=== PATIENT | female | born 1950 | race Hispanic/Latino ===

== ENCOUNTER 2018-01-12 10:42 | Inpatient (IN) | payer MEDICARE ==
[2018-01-12 11:05] VITALS: BMI 23.2
[2018-01-12] MEDS ORDERED: Albuterol-Ipratrop 3 mg / 0.5 (3 ml) UD INH STA ×2 (11:35→13:17)
[2018-01-12 11:54] LABS: BASO # 0.1 K/uL (0.0-0.2); BASO % 1.1 % (0.0-2.0); EOS # 0.1 K/uL (0.0-0.7); EOS % 0.5 % (0.0-4.0); HEMOGLOBIN 11.9 g/dL (11.0-16.0); LYMPH # 0.9 K/uL (1.0-4.3); LYMPH % 9.9 % (20.0-40.0); MEAN CELL VOLUME 87.6 fL (81.0-99.0); MEAN CORPUSCULAR HEMOGLOBIN 29.9 pg (27.0-31.0); MEAN CORPUSCULAR HGB CONC 34.1 g/dL (33.0-37.0); MEAN PLATELET VOLUME 7.8 fL (7.2-11.7); MONO # 0.7 K/uL (0.0-0.8); MONO % 6.9 % (0.0-10.0); NEUT # 7.8 K/uL (1.8-7.0); NEUT % 81.6 % (50.0-75.0); PLATELET COUNT 384 K/uL (130-400); RED CELL DISTRIBUTION WIDTH 17.4 % (11.5-14.5); WHITE BLOOD COUNT 9.5 K/uL (4.8-10.8)
[2018-01-12 12:07] LABS: ALB/GLOB RATIO 1.3 (1.0-2.1); ALBUMIN 3.7 g/dL (3.5-5.0); ALT/SGPT 23 U/L (9-52); AST/SGOT 14 U/L (14-36); BLOOD UREA NITROGEN 9 mg/dL (7-17); CALCIUM 9.6 mg/dl (8.6-10.4); GFR AFRICAN-AMERICAN > 60; GFR NON-AFRICAN AMERICAN > 60
[2018-01-12 12:18] LABS: B-TYPE NATRIURETIC PEPTIDE 746 pg/mL (0-900)
--- NOTE | 2018-01-12 12:21 | RAD ---
HISTORY: COMPARISON: No prior. TECHNIQUE: 01/12/2018 Chest PA and lateral FINDINGS: LINES AND TUBES: None. LUNG AND PLEURA: The lungs are well inflated and clear. No pleural effusion or pneumothorax. HEART AND MEDIASTINUM: The heart is not enlarged. Status post CABG. The hilar and mediastinal contours are within normal limits. SKELETAL STRUCTURES: The bony structures are within normal limits for the patient's age. VISUALIZED UPPER ABDOMEN: Normal. OTHER FINDINGS: None. IMPRESSION: No active pulmonary disease.
[2018-01-12 12:26] LABS: BANDS 1 % (0-2); LYMPHOCYTE 10 % (20-40); MONOCYTE 3 % (0-10); NEUTROPHIL 86 % (50-75); PLATELET ESTIMATE NORMAL (NORMAL); TOTAL CELLS COUNTED 100
[2018-01-12 12:27] LABS: ANISOCYTOSIS SLIGHT
[2018-01-12] MEDS ORDERED: Albuterol-Ipratrop 3 mg / 0.5 (3 ml) UD ONE ×2 (12:45→13:42)
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
[2018-01-12] MEDS ORDERED: MethylPREDNISolone 40 mg Vial IVP STA (13:29)
[2018-01-12] MEDS ORDERED: Potassium Chloride 20 mEq ER Tab PO STA (15:02)
[2018-01-12] MEDS ORDERED: Potassium Chloride 20 mEq/15 ml LIQ UD ONE (15:12)
[2018-01-12] MEDS ORDERED: Dextrose 50% SYRINGE Inj (50 ml) IV PRN (15:44)
[2018-01-12] MEDS ORDERED: Glucagon Recombinant 1 mg Inj IM PRN (15:44)
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
[2018-01-12] MEDS ORDERED: MethylPREDNISolone 40 mg Vial IVP SCH (18:00)
[2018-01-12 18:42] LABS: PROTHROMBIN TIME 11.2 SECONDS (9.7-12.2)
[2018-01-12 19:01] LABS: CK-MB 0.53 ng/mL (0.0-3.38)
[2018-01-12 20:35] LABS: MYCOPLASMA PNEUMONIAE IGM NEGATIVE (NEGATIVE)
[2018-01-12] MEDS: (Novolin R) Insulin Human Regular 100 units/ml vial SC SCH (22:51)
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
[2018-01-13] MEDS: MethylPREDNISolone 40 mg Vial IVP SCH ×4 (00:10→18:24)
[2018-01-13] MEDS: Albuterol-Ipratrop 3 mg / 0.5 (3 ml) UD INH SCH ×6 (00:41→20:10)
[2018-01-13 04:43] LABS: SQUAMOUS EPITHIAL < 1 /hpf (0-5); URINE BILIRUBIN NEGATIVE (NEGATIVE); URINE BLOOD NEGATIVE (NEGATIVE); URINE CLARITY Clear (Clear); URINE COLOR Straw (YELLOW); URINE GLUCOSE (UA) 3+ mg/dL (Normal); URINE LEUKOCYTE ESTERASE NEG Leu/uL (Negative); URINE PROTEIN NEGATIVE (NEGATIVE); URINE UROBILINOGEN NORMAL mg/dL (0.2-1.0)
[2018-01-13 06:37] LABS: BASO % 0.1 % (0.0-2.0); HEMOGLOBIN 11.7 g/dL (11.0-16.0); LYMPH # 0.4 K/uL (1.0-4.3); LYMPH % 6.4 % (20.0-40.0); MEAN CELL VOLUME 86.9 fL (81.0-99.0); MEAN CORPUSCULAR HEMOGLOBIN 29.4 pg (27.0-31.0); MEAN CORPUSCULAR HGB CONC 33.8 g/dL (33.0-37.0); MEAN PLATELET VOLUME 8.4 fL (7.2-11.7); MONO # 0.1 K/uL (0.0-0.8); NEUT # 5.8 K/uL (1.8-7.0); NEUT % 92.5 % (50.0-75.0); NRBC % 0.1 % (0.0-2.0); PLATELET COUNT 350 K/uL (130-400); RED CELL DISTRIBUTION WIDTH 17.2 % (11.5-14.5); WHITE BLOOD COUNT 6.2 K/uL (4.8-10.8)
[2018-01-13 07:21] LABS: CK-MB 0.89 ng/mL (0.0-3.38)
[2018-01-13 07:27] LABS: LDL CHOLESTEROL 89 mg/dL (0-129)
[2018-01-13] MEDS: Fluticasone-Salmeterol 250-50mcg Diskus IH SCH ×2 (07:30→20:13)
[2018-01-13 07:36] LABS: ALB/GLOB RATIO 1.4 (1.0-2.1); ALBUMIN 3.6 g/dL (3.5-5.0); ALT/SGPT 23 U/L (9-52); AST/SGOT 15 U/L (14-36); BLOOD UREA NITROGEN 11 mg/dL (7-17); CALCIUM 8.7 mg/dl (8.6-10.4); GFR AFRICAN-AMERICAN > 60; GFR NON-AFRICAN AMERICAN > 60; HDL CHOLESTEROL 42 mg/dL (30-70)
[2018-01-13] MEDS: (Novolin R) Insulin Human Regular 100 units/ml vial SC SCH ×5 (08:22→21:05)
[2018-01-13 08:30] LABS: TOTAL CELLS COUNTED 100
[2018-01-13 08:31] LABS: ANISOCYTOSIS SLIGHT; LYMPHOCYTE 2 % (20-40); NEUTROPHIL 98 % (50-75); PLATELET ESTIMATE NORMAL (NORMAL)
[2018-01-13 09:06] LABS: N MENINGITIS ACY/W135 NOT REQUIRED (NEGATIVE); N MENINGITIS B/ECOLI K1 NOT REQUIRED (NEGATIVE); STREP PNEUMONIAE NEGATIVE (NEGATIVE); STREPTOCOCCUS B NOT REQUIRED (NEGATIVE)
[2018-01-13] MEDS: Enoxaparin 40 mg Syringe SC SCH (09:14)
--- NOTE | 2018-01-13 11:42 | CP.PCM.PN ---
Subjective - Date & Time of Evaluation Date of Evaluation: 01/13/18 Time of Evaluation: 11:40 - Subjective Subjective: PGY2 Progress Note Dr. Freeman Patient seen and examined at bedside. Per nursing, no acute events occurred overnight. Patient reports right hip pain during today's visit. Patient denies any chest pain, shortness of breath, fevers, chills, nausea , vomiting, or any other complaints. Objective - Vital Signs/Intake and Output Vital Signs (last 24 hours): Temp Pulse Resp BP Pulse Ox 98.3 F 87 20 135/70 94 L 01/13/18 08:32 01/13/18 08:32 01/13/18 08:32 01/13/18 09:13 01/13/18 08:32 Intake and Output: 01/13/18 01/13/18 06:59 18:59 Intake Total 480 Balance 480 - Medications Medications: Current Medications Albuterol/Ipratropium (Duoneb 3 Mg/0.5 Mg (3 Ml) Ud) 3 ml INH RQ4 [facility] Last Admin: 01/13/18 07:00 Dose: 3 ml Azithromycin (Zithromax) 500 mg PO Q24H [facility] PRN Reason: Protocol Stop: 01/17/18 10:01 Last Admin: 01/13/18 09:16 Dose: 500 mg Dextrose (Dextrose 50% Inj) 0 ml IV STAT PRN; Protocol PRN Reason: Hypoglycemia Protocol Dextrose (Glutose 15) 0 gm PO ONCE PRN; Protocol PRN Reason: Hypoglycemia Protocol Enalapril Maleate (Vasotec) 10 mg PO DAILY [facility] Last Admin: 01/13/18 09:10 Dose: 10 mg Enoxaparin Sodium (Lovenox) 40 mg SC DAILY [facility] Last Admin: 01/13/18 09:14 Dose: 40 mg Glucagon (Glucagen Diagnostic Kit) 0 mg IM STAT PRN; Protocol PRN Reason: Hypoglycemia Protocol Hydrochlorothiazide (Hydrodiuril) 25 mg PO DAILY [facility] Dextrose (Dextrose 5% In Water 1000 Ml) 1,000 mls @ 0 mls/hr IV .Q0M PRN; Protocol; Per Protocol PRN Reason: Hypoglycemia Protocol Ceftriaxone Sodium 1 gm/ (Sodium Chloride) 100 mls @ 100 mls/hr IVPB DAILY [facility] PRN Reason: Protocol Insulin Human Regular (Novolin R) 0 unit SC ACHS [facility] PRN Reason: Protocol Last Admin: 01/13/18 08:22 Dose: 6 units Methylprednisolone (Solu-Medrol) 60 mg IVP Q6 [facility] Last Admin: 01/13/18 05:23 Dose: 60 mg Metoprolol Tartrate (Lopressor) 25 mg PO Q12 [facility] Last Admin: 01/13/18 09:13 Dose: 25 mg Rosuvastatin Calcium (Crestor) 10 mg PO HS [facility] Last Admin: 01/12/18 22:50 Dose: 10 mg Fluticasone/Salmeterol (Advair Diskus 250/50) 1 puff IH RQ12 [facility] Tiotropium [place] (Spiriva) 18 mcg INH RQ24 [facility] - Labs Labs: 01/13/18 06:29 01/13/18 06:29 PT 11.2 SECONDS (9.7-12.2) 01/12/18 18:29 INR 1.0 01/12/18 18:29 APTT 28 SECONDS (21-34) 01/12/18 18:29 - Head Exam Head Exam: ATRAUMATIC, NORMAL INSPECTION, NORMOCEPHALIC - Eye Exam Eye Exam: EOMI, Normal appearance Pupil Exam: NORMAL ACCOMODATION - ENT Exam ENT Exam: Mucous Membranes Moist, Normal Oropharynx - Respiratory Exam Respiratory Exam: Clear to Ausculation Bilateral, NORMAL BREATHING PATTERN - Cardiovascular Exam Cardiovascular Exam: REGULAR RHYTHM, +S1, +S2 - GI/Abdominal Exam GI & Abdominal Exam: Soft, Normal Bowel Sounds - Extremities Exam Extremities Exam: Full ROM. absent: Pedal Edema - Back Exam Back Exam: NORMAL INSPECTION. absent: CVA tenderness (R), paraspinal tenderness - Neurological Exam Neurological Exam: Alert, Awake, CN II-XII Intact - Psychiatric Exam Psychiatric exam: Normal Affect, Normal Mood - Skin Skin Exam: Dry, Intact Assessment and Plan - Assessment and Plan (Free Text) Plan: 67 YO F w/ PMH of CAD, PVD, HTN, HLD, Type 2 DM, carotid stenosis s/p endartectomy, COPD, bipolar admitted for COPD exacerbation, hypokalemia, r/o pneumonia and chest pain. Pt is a poor historian. COPD exacerbation -Chest X ray - negative for active disease -mycoplasma, step pneumo: Negative -Legionella cancelled. Will re-order. -secondary to noncompliance with medications -with diffuse wheezing b/l on inhalation and exhalation -Duonebs RQ4 [facility] -Spiriva 18mcg INH Daily -Advair 250/50 RQ12 -Solumedrol IVP 60mg Q6 hours - SAt 94% O2, 2L NC prn to keep O2 sat above 92% -Ceftriaxone 1 gram IVPB daily (started 01/12) -Azithromycin 500mg PO daily x 5 days (started 01/12) Chest Pain/CAD- s/p CABG -likely scrondary to COPD exacerbation but will r/o PR -Troponin x 3 : negative -EKG : Non specific EKG changes noted. No acute ischemic event noted -Cardiology consulted, Dr. Lam, help appreciated - [place] [facility] [place] will need to check medical record to see if recent echo was ordered -Pt started was on coumadin therapy but has not been taking? -PT: 11.2, INR:1.O Hypokalemia -3.3 - Replaced iv -Mg level 1.7 Diarrhea -C.diff negative -Will f/u with remaining stool studies HTN -controlled, low sodium diet -Enalapril 10mg PO daily -HCTHZ 25mg PO daily -Metoprolol 25mg BID DM- Type II uncontrolled -HbA1c 9 (11/05/17) -Sliding scale Insulin; medium dose -Accuchecks ACHS -hypoglycemia protocol -will hold home metformin while in the hospital Sunburn, dorsum of feet Wound care consulted, help appreciated Hx of Bipolar disorder, schizophrenia, anxiety -Tangential and scattered on exam -Psych consulted, [place], help appreciated Prophylaxis -Lovenox 40mg sc daily, SCD not indicated due to leg edema - GI not indicated All orders and management per Dr. Freeman.
[2018-01-13] MEDS: Tiotropium 18 mcg Cap For Inhalation INH SCH (13:46)
--- NOTE | 2018-01-13 19:37 | CP.PCM.PN ---
Subjective - Date & Time of Evaluation Date of Evaluation: 01/13/18 Time of Evaluation: 14:20 - Subjective Subjective: Patient seen and examined at bedside. Per nursing, no acute events occurred overnight. Patient reports right hip pain during today's visit. Patient denies any chest pain, shortness of breath, fevers, chills, nausea , vomiting, or any other complaints. Physical Examination - Head Exam Head Exam: ATRAUMATIC, NORMAL INSPECTION, NORMOCEPHALIC - Eye Exam Eye Exam: EOMI, Normal appearance Pupil Exam: NORMAL ACCOMODATION - ENT Exam ENT Exam: Mucous Membranes Moist, Normal Oropharynx - Respiratory Exam Respiratory Exam: Clear to Ausculation Bilateral, NORMAL BREATHING PATTERN - Cardiovascular Exam Cardiovascular Exam: REGULAR RHYTHM, +S1, +S2 - GI/Abdominal Exam GI & Abdominal Exam: Soft, Normal Bowel Sounds - Extremities Exam Extremities Exam: Full ROM. absent: Pedal Edema - Back Exam Back Exam: NORMAL INSPECTION. absent: CVA tenderness (R), paraspinal tenderness - Neurological Exam Neurological Exam: Alert, Awake, CN II-XII Intact - Psychiatric Exam Psychiatric exam: Normal Affect, Normal Mood - Skin Skin Exam: Dry, Intact Objective - Vital Signs/Intake and Output Vital Signs (last 24 hours): Temp Pulse Resp BP Pulse Ox 97.9 F 67 18 142/60 95 01/13/18 15:05 01/13/18 16:00 01/13/18 15:05 01/13/18 15:05 01/13/18 15:05 Intake and Output: 01/13/18 01/14/18 18:59 06:59 Intake Total 480 Balance 480 - Medications Medications: Current Medications Albuterol/Ipratropium (Duoneb 3 Mg/0.5 Mg (3 Ml) Ud) 3 ml INH RQ4 [facility] Last Admin: 01/13/18 13:45 Dose: 3 ml Azithromycin (Zithromax) 500 mg PO Q24H [facility] PRN Reason: Protocol Stop: 01/17/18 10:01 Last Admin: 01/13/18 09:16 Dose: 500 mg Dextrose (Dextrose 50% Inj) 0 ml IV STAT PRN; Protocol PRN Reason: Hypoglycemia Protocol Dextrose (Glutose 15) 0 gm PO ONCE PRN; Protocol PRN Reason: Hypoglycemia Protocol Enalapril Maleate (Vasotec) 10 mg PO DAILY [facility] Last Admin: 01/13/18 09:10 Dose: 10 mg Enoxaparin Sodium (Lovenox) 40 mg SC DAILY [facility] Last Admin: 01/13/18 09:14 Dose: 40 mg Glucagon (Glucagen Diagnostic Kit) 0 mg IM STAT PRN; Protocol PRN Reason: Hypoglycemia Protocol Hydrochlorothiazide (Hydrodiuril) 25 mg PO DAILY [facility] Last Admin: 01/13/18 13:14 Dose: 25 mg Dextrose (Dextrose 5% In Water 1000 Ml) 1,000 mls @ 0 mls/hr IV .Q0M PRN; Protocol; Per Protocol PRN Reason: Hypoglycemia Protocol Ceftriaxone Sodium 1 gm/ (Sodium Chloride) 100 mls @ 100 mls/hr IVPB DAILY [facility] PRN Reason: Protocol Last Admin: 01/13/18 10:00 Dose: 100 mls/hr Insulin Human Regular (Novolin R) 0 unit SC ACHS [facility] PRN Reason: Protocol Last Admin: 01/13/18 18:23 Dose: Not Given Methylprednisolone (Solu-Medrol) 60 mg IVP Q6 [facility] Last Admin: 01/13/18 18:24 Dose: 60 mg Metoprolol Tartrate (Lopressor) 25 mg PO Q12 [facility] Last Admin: 01/13/18 09:13 Dose: 25 mg Rosuvastatin Calcium (Crestor) 10 mg PO HS [facility] Last Admin: 01/12/18 22:50 Dose: 10 mg Fluticasone/Salmeterol (Advair Diskus 250/50) 1 puff IH RQ12 [facility] Last Admin: 01/13/18 07:30 Dose: 1 puff Tiotropium [place] (Spiriva) 18 mcg INH RQ24 [facility] Last Admin: 01/13/18 13:46 Dose: Not Given - Labs Labs: 01/13/18 06:29 01/13/18 06:29 PT 11.2 SECONDS (9.7-12.2) 01/12/18 18:29 INR 1.0 01/12/18 18:29 APTT 28 SECONDS (21-34) 01/12/18 18:29 Assessment and Plan - Assessment and Plan (Free Text) Assessment: 67 YO F w/ PMH of CAD, PVD, HTN, HLD, Type 2 DM, carotid stenosis s/p endartectomy, COPD, bipolar admitted for COPD exacerbation, hypokalemia, r/o pneumonia and chest pain. Pt is a poor historian. COPD exacerbation -Chest X ray - negative for active disease -mycoplasma, step pneumo: Negative -Legionella cancelled. Will re-order. -secondary to noncompliance with medications -with diffuse wheezing b/l on inhalation and exhalation -Duonebs RQ4 denice -Spiriva 18mcg INH Daily -Advair 250/50 RQ12 -Solumedrol IVP 60mg Q6 hours - SAt 94% O2, 2L NC prn to keep O2 sat above 92% -Ceftriaxone 1 gram IVPB daily (started 01/12) -Azithromycin 500mg PO daily x 5 days (started 01/12) Chest Pain/CAD- s/p CABG -likely scrondary to COPD exacerbation but will r/o [place] -Troponin x 3 : negative -EKG : Non specific EKG changes noted. No acute ischemic event noted ECHO: Normal EF Patient scheduled for stress test in am HTN -controlled, low sodium diet -Enalapril 10mg PO daily -HCTHZ 25mg PO daily -Metoprolol 25mg BID DM- Type II uncontrolled -HbA1c 9 (11/05/17) -Sliding scale Insulin; medium dose -Accuchecks ACHS -hypoglycemia protocol -will hold home metformin while in the hospital Sunburn, dorsum of feet Wound care consulted, help appreciated Hx of Bipolar disorder, schizophrenia, anxiety -Tangential and scattered on exam -Psych consulted, [place], help appreciated Prophylaxis -Lovenox 40mg sc daily, SCD not indicated due to leg edema - GI not indicated
[2018-01-13] MEDS ORDERED: Potassium Chloride 20 mEq ER Tab PO ONE (22:41)
[2018-01-14] MEDS: MethylPREDNISolone 40 mg Vial IVP SCH ×5 (00:04→23:49)
[2018-01-14] MEDS: Albuterol-Ipratrop 3 mg / 0.5 (3 ml) UD INH SCH ×6 (00:17→19:50)
[2018-01-14 02:30] VITALS: RESP 20
--- NOTE | 2018-01-14 07:17 | CP.PCM.PN ---
Subjective - Date & Time of Evaluation Date of Evaluation: 01/14/18 Time of Evaluation: 07:17 - Subjective Subjective: PGY2 Progress Note Dr. Freeman Patient seen and examined at bedside. Per nursing, no acute events occurred overnight. Patient reports right hip pain during today's visit. Patient denies any chest pain, shortness of breath, fevers, chills, nausea , vomiting, or any other complaints. Objective - Vital Signs/Intake and Output Vital Signs (last 24 hours): Temp Pulse Resp BP Pulse Ox 98.0 F 72 20 168/67 H 96 01/13/18 23:40 01/14/18 04:37 01/13/18 23:40 01/13/18 23:40 01/13/18 23:40 Intake and Output: 01/14/18 01/14/18 06:59 18:59 Intake Total 520 Output Total 1200 Balance -680 - Medications Medications: Current Medications Albuterol/Ipratropium (Duoneb 3 Mg/0.5 Mg (3 Ml) Ud) 3 ml INH RQ4 [facility] Last Admin: 01/14/18 04:20 Dose: Not Given Azithromycin (Zithromax) 500 mg PO Q24H [facility] PRN Reason: Protocol Stop: 01/17/18 10:01 Last Admin: 01/13/18 09:16 Dose: 500 mg Dextrose (Dextrose 50% Inj) 0 ml IV STAT PRN; Protocol PRN Reason: Hypoglycemia Protocol Dextrose (Glutose 15) 0 gm PO ONCE PRN; Protocol PRN Reason: Hypoglycemia Protocol Enalapril Maleate (Vasotec) 10 mg PO DAILY [facility] Last Admin: 01/13/18 09:10 Dose: 10 mg Enoxaparin Sodium (Lovenox) 40 mg SC DAILY [facility] Last Admin: 01/13/18 09:14 Dose: 40 mg Glucagon (Glucagen Diagnostic Kit) 0 mg IM STAT PRN; Protocol PRN Reason: Hypoglycemia Protocol Hydrochlorothiazide (Hydrodiuril) 25 mg PO DAILY [facility] Last Admin: 01/13/18 13:14 Dose: 25 mg Dextrose (Dextrose 5% In Water 1000 Ml) 1,000 mls @ 0 mls/hr IV .Q0M PRN; Protocol; Per Protocol PRN Reason: Hypoglycemia Protocol Ceftriaxone Sodium 1 gm/ (Sodium Chloride) 100 mls @ 100 mls/hr IVPB DAILY [facility] PRN Reason: Protocol Last Admin: 01/13/18 10:00 Dose: 100 mls/hr Insulin Human Regular (Novolin R) 0 unit SC ACHS [facility] PRN Reason: Protocol Last Admin: 01/13/18 21:05 Dose: Not Given Methylprednisolone (Solu-Medrol) 60 mg IVP Q6 [facility] Last Admin: 01/14/18 05:59 Dose: 60 mg Metoprolol Tartrate (Lopressor) 25 mg PO Q12 [facility] Last Admin: 01/13/18 21:31 Dose: 25 mg Potassium Chloride (K-Dur 20 Meq Er Tab) 20 meq PO DAILY [facility] Rosuvastatin Calcium (Crestor) 10 mg PO HS [facility] Last Admin: 01/13/18 21:31 Dose: 10 mg Fluticasone/Salmeterol (Advair Diskus 250/50) 1 puff IH RQ12 [facility] Last Admin: 01/13/18 20:13 Dose: Not Given Tiotropium [place] (Spiriva) 18 mcg INH RQ24 [facility] Last Admin: 01/13/18 13:46 Dose: Not Given - Labs Labs: 01/13/18 06:29 01/13/18 06:29 PT 11.2 SECONDS (9.7-12.2) 01/12/18 18:29 INR 1.0 01/12/18 18:29 APTT 28 SECONDS (21-34) 01/12/18 18:29 - Head Exam Head Exam: ATRAUMATIC, NORMAL INSPECTION - Eye Exam Eye Exam: EOMI, Normal appearance, PERRL Pupil Exam: NORMAL ACCOMODATION, PERRL. absent: Irregular, Unequal - ENT Exam ENT Exam: Mucous Membranes Moist, Normal Oropharynx - Respiratory Exam Respiratory Exam: Clear to Ausculation Bilateral, NORMAL BREATHING PATTERN. absent: Prolonged Expiratory Phase, Respiratory Distress - Cardiovascular Exam Cardiovascular Exam: REGULAR RHYTHM, +S1, +S2 - GI/Abdominal Exam GI & Abdominal Exam: Soft, Normal Bowel Sounds - Extremities Exam Extremities Exam: Full ROM, Normal Inspection. absent: Pedal Edema - Back Exam Back Exam: NORMAL INSPECTION. absent: CVA tenderness (R), paraspinal tenderness - Neurological Exam Neurological Exam: Alert, Awake, Oriented x3 - Psychiatric Exam Psychiatric exam: Normal Affect, Normal Mood - Skin Skin Exam: Dry, Intact Assessment and Plan - Assessment and Plan (Free Text) Plan: 67 YO F w/ PMH of CAD, PVD, HTN, HLD, Type 2 DM, carotid stenosis s/p endartectomy, COPD, bipolar admitted for COPD exacerbation, hypokalemia, r/o pneumonia and chest pain. Pt is a poor historian. COPD exacerbation -Chest X ray - negative for active disease -mycoplasma, step pneumo: Negative -secondary to noncompliance with medications -with diffuse wheezing b/l on inhalation and exhalation -Duonebs RQ4 [facility] -Spiriva 18mcg INH Daily -Advair 250/50 RQ12 -Solumedrol IVP 60mg Q6 hours - SAt 94% O2, 2L NC prn to keep O2 sat above 92% -Ceftriaxone 1 gram IVPB daily (started 01/12) -Azithromycin 500mg PO daily x 5 days (started 01/12) Chest Pain/CAD- s/p CABG -likely scrondary to COPD exacerbation but will r/o [place] -Troponin x 3 : negative -EKG : Non specific EKG changes noted. No acute ischemic event noted -Cardiology consulted, Dr. Lam, help appreciated - patient [place] [facility] [place] will need to check medical record to see if recent echo was ordered -Pt started was on coumadin therapy but has not been taking? -PT: 11.2, INR:1.O Hypokalemia - Replaced iv -Mg level 1.7 -Will monitor with serial CMP's Diarrhea -C.diff negative -stool leukocytes negative HTN -controlled, low sodium diet -Enalapril 10mg PO daily -HCTHZ 25mg PO daily -Metoprolol 25mg BID DM- Type II uncontrolled -HbA1c 9 (11/05/17) -Sliding scale Insulin; medium dose -Accuchecks ACHS -hypoglycemia protocol -will hold home metformin while in the hospital Sunburn, dorsum of feet Wound care consulted, help appreciated Hx of Bipolar disorder, schizophrenia, anxiety -AOX3 on exam today. -Psych consulted, [place], help appreciated Prophylaxis -Lovenox 40mg sc daily, SCD not indicated due to leg edema - GI not indicated All orders and management per Dr. Freeman.
--- NOTE | 2018-01-14 08:17 | HP ---
Copied To: Estephania Freeman MD Attending MD: Estephania Freeman MD HISTORY OF PRESENT ILLNESS: A 67-year-old female who comes to the hospital with chief complaint of shortness of breath, wheezing, cough, fatigue, tiredness. The patient has a history of coronary artery disease, carotid stenosis, COPD. The patient is a smoker. The patient lives in nursing home. PHYSICAL EXAMINATION: GENERAL: The patient is awake, alert, oriented, short of breath.. VITAL SIGNS: Temperature 98, pulse 90. HEENT: Within normal limits. NECK: Supple. CHEST: Symmetrical. air entry. Bilateral wheezes. HEART: Regular. ABDOMEN: Soft. EXTREMITIES: No edema. IMPRESSION: The patient has chronic obstructive pulmonary disease, bronchitis, and congestive heart failure. PLAN: The patient to be in bed rest, supportive care, bronchodilator. Estephania Freeman MD
[2018-01-14] MEDS: Fluticasone-Salmeterol 250-50mcg Diskus IH SCH ×2 (08:18→19:49)
[2018-01-14] MEDS: Tiotropium 18 mcg Cap For Inhalation INH SCH (08:19)
[2018-01-14] MEDS: (Novolin R) Insulin Human Regular 100 units/ml vial SC SCH ×4 (08:35→21:42)
--- NOTE | 2018-01-14 09:59 | CP.PCM.PN ---
<Nikki Olsen - Last Filed: 01/14/18 16:50> Subjective - Date & Time of Evaluation Date of Evaluation: 01/14/18 Time of Evaluation: 09:58 - Subjective Subjective: Cardiology Progress Note - Dr Lam Patient seen and examined at bedside. Per nursing no acute events overnight. Patient for stress test this morning. Was unable to complete the second part of stress test, patient kept moving. Denies dyspnea, shortness of breath. Complaining of frequently moving her bowels. States that her bowel bowel movements are well formed and normal in color. Objective - Vital Signs/Intake and Output Vital Signs (last 24 hours): Temp Pulse Resp BP Pulse Ox 98.5 F 63 20 162/65 H 94 L 01/14/18 07:25 01/14/18 08:00 01/14/18 07:25 01/14/18 09:49 01/14/18 07:25 Intake and Output: 01/14/18 01/14/18 06:59 18:59 Intake Total 520 Output Total 1200 Balance -680 - Medications Medications: Current Medications Albuterol/Ipratropium (Duoneb 3 Mg/0.5 Mg (3 Ml) Ud) 3 ml INH RQ4 [facility] Last Admin: 01/14/18 08:18 Dose: Not Given Azithromycin (Zithromax) 500 mg PO Q24H [facility] PRN Reason: Protocol Stop: 01/17/18 10:01 Last Admin: 01/13/18 09:16 Dose: 500 mg Dextrose (Dextrose 50% Inj) 0 ml IV STAT PRN; Protocol PRN Reason: Hypoglycemia Protocol Dextrose (Glutose 15) 0 gm PO ONCE PRN; Protocol PRN Reason: Hypoglycemia Protocol Enalapril Maleate (Vasotec) 10 mg PO DAILY [facility] Last Admin: 01/14/18 09:49 Dose: 10 mg Enoxaparin Sodium (Lovenox) 40 mg SC DAILY [facility] Last Admin: 01/13/18 09:14 Dose: 40 mg Glucagon (Glucagen Diagnostic Kit) 0 mg IM STAT PRN; Protocol PRN Reason: Hypoglycemia Protocol Hydrochlorothiazide (Hydrodiuril) 25 mg PO DAILY [facility] Last Admin: 01/14/18 09:50 Dose: 25 mg Dextrose (Dextrose 5% In Water 1000 Ml) 1,000 mls @ 0 mls/hr IV .Q0M PRN; Protocol; Per Protocol PRN Reason: Hypoglycemia Protocol Ceftriaxone Sodium 1 gm/ (Sodium Chloride) 100 mls @ 100 mls/hr IVPB DAILY [facility] PRN Reason: Protocol Last Admin: 01/13/18 10:00 Dose: 100 mls/hr Insulin Human Regular (Novolin R) 0 unit SC ACHS [facility] PRN Reason: Protocol Last Admin: 01/14/18 08:35 Dose: 4 units Methylprednisolone (Solu-Medrol) 60 mg IVP Q6 [facility] Last Admin: 01/14/18 05:59 Dose: 60 mg Metoprolol Tartrate (Lopressor) 25 mg PO Q12 [facility] Last Admin: 01/14/18 09:49 Dose: 25 mg Potassium Chloride (K-Dur 20 Meq Er Tab) 20 meq PO DAILY [facility] Rosuvastatin Calcium (Crestor) 10 mg PO HS [facility] Last Admin: 01/13/18 21:31 Dose: 10 mg Fluticasone/Salmeterol (Advair Diskus 250/50) 1 puff IH RQ12 [facility] Last Admin: 01/14/18 08:18 Dose: Not Given Tiotropium [place] (Spiriva) 18 mcg INH RQ24 [facility] Last Admin: 01/14/18 08:19 Dose: Not Given - Labs Labs: 01/13/18 06:29 01/13/18 06:29 PT 11.2 SECONDS (9.7-12.2) 01/12/18 18:29 INR 1.0 01/12/18 18:29 APTT 28 SECONDS (21-34) 01/12/18 18:29 - Additional Findings Additional findings: - Head Exam Head Exam: ATRAUMATIC, NORMAL INSPECTION - Eye Exam Eye Exam: EOMI, Normal appearance, PERRL Pupil Exam: NORMAL ACCOMODATION, PERRL. absent: Irregular, Unequal - ENT Exam ENT Exam: Mucous Membranes Moist, Normal Oropharynx - Respiratory Exam Respiratory Exam: Clear to Ausculation Bilateral, NORMAL BREATHING PATTERN. absent: Prolonged Expiratory Phase, Respiratory Distress - Cardiovascular Exam Cardiovascular Exam: REGULAR RHYTHM, +S1, +S2 - GI/Abdominal Exam GI & Abdominal Exam: Soft, Normal Bowel Sounds - Extremities Exam Extremities Exam: Full ROM, Normal Inspection. absent: Pedal Edema - Back Exam Back Exam: NORMAL INSPECTION. absent: CVA tenderness (R), paraspinal tenderness - Neurological Exam Neurological Exam: Alert, Awake, Oriented x3 - Psychiatric Exam Psychiatric exam: Normal Affect, Normal Mood - Skin Skin Exam: Dry, Intact Assessment and Plan - Assessment and Plan (Free Text) Assessment: 67 YO F w/ PMH of CAD, PVD, HTN, HLD, Type 2 DM, carotid stenosis s/p endartectomy, COPD, bipolar admitted for COPD exacerbation, hypokalemia, r/o pneumonia and chest pain. Pt is a poor historian. Chest Pain/CAD- s/p CABG -likely scrondary to COPD exacerbation but will r/o NM -Troponin x 3 : negative -EKG : Non specific EKG changes noted. No acute ischemic event noted -ECHO: Normal EF -Continue medical management HTN -Controlled, low sodium diet -Patient complaining of dry mouth, will d/c HCTZ and increase vasotec -Enalapril 20mg PO daily -Metoprolol 25mg BID COPD exacerbation -Chest X ray - negative for active disease -mycoplasma, step pneumo: Negative -Legionella cancelled. Will re-order. -secondary to noncompliance with medications -Duonebs RQ4 [facility], Spiriva 18mcg INH Daily, Advair 250/50 RQ12 -Solumedrol IVP 60mg Q6 hours -SAt 94% O2, 2L NC prn to keep O2 sat above 92% -Ceftriaxone 1 gram IVPB daily (started 01/12) -Azithromycin 500mg PO daily x 5 days (started 01/12) DM- Type II uncontrolled -HbA1c 9 (11/05/17) -Sliding scale Insulin; medium dose -Accuchecks ACHS -hypoglycemia protocol -will hold home metformin while in the hospital Sunburn, dorsum of feet Wound care consulted, help appreciated Hx of Bipolar disorder, schizophrenia, anxiety -Tangential and scattered on exam -Psych consulted, [place], help appreciated Plan discussed with Dr Genaro Olsen DO PGY-2 <Chaitanya Lam - Last Filed: 01/15/18 06:33> Objective - Vital Signs/Intake and Output Vital Signs (last 24 hours): Temp Pulse Resp BP Pulse Ox 98.1 F 78 20 128/67 96 01/14/18 23:35 01/15/18 04:33 01/14/18 23:35 01/14/18 23:35 01/14/18 23:35 Intake and Output: 01/14/18 01/15/18 18:59 06:59 Intake Total 320 Balance 320 - Medications Medications: Current Medications Albuterol/Ipratropium (Duoneb 3 Mg/0.5 Mg (3 Ml) Ud) 3 ml INH RQ4 [facility] Last Admin: 01/15/18 03:57 Dose: Not Given Azithromycin (Zithromax) 500 mg PO Q24H [facility] PRN Reason: Protocol Stop: 01/17/18 10:01 Last Admin: 01/14/18 12:01 Dose: 500 mg Dextrose (Dextrose 50% Inj) 0 ml IV STAT PRN; Protocol PRN Reason: Hypoglycemia Protocol Dextrose (Glutose 15) 0 gm PO ONCE PRN; Protocol PRN Reason: Hypoglycemia Protocol Enalapril Maleate (Vasotec) 20 mg PO DAILY [facility] Enoxaparin Sodium (Lovenox) 40 mg SC DAILY [facility] Last Admin: 01/14/18 11:59 Dose: 40 mg Glucagon (Glucagen Diagnostic Kit) 0 mg IM STAT PRN; Protocol PRN Reason: Hypoglycemia Protocol Dextrose (Dextrose 5% In Water 1000 Ml) 1,000 mls @ 0 mls/hr IV .Q0M PRN; Protocol; Per Protocol PRN Reason: Hypoglycemia Protocol Ceftriaxone Sodium 1 gm/ (Sodium Chloride) 100 mls @ 100 mls/hr IVPB DAILY [facility] PRN Reason: Protocol Last Admin: 01/14/18 12:02 Dose: 100 mls/hr Insulin Human Regular (Novolin R) 0 unit SC ACHS [facility] PRN Reason: Protocol Last Admin: 01/14/18 21:42 Dose: Not Given Methylprednisolone (Solu-Medrol) 60 mg IVP Q6 [facility] Last Admin: 01/15/18 05:48 Dose: 60 mg Metoprolol Tartrate (Lopressor) 25 mg PO Q12 [facility] Last Admin: 01/14/18 21:40 Dose: 25 mg Potassium Chloride (K-Dur 20 Meq Er Tab) 20 meq PO DAILY [facility] Last Admin: 01/14/18 12:02 Dose: 20 meq Rosuvastatin Calcium (Crestor) 10 mg PO HS [facility] Last Admin: 01/14/18 21:40 Dose: 10 mg Fluticasone/Salmeterol (Advair Diskus 250/50) 1 puff IH RQ12 [facility] Last Admin: 01/14/18 19:49 Dose: 1 puff Tiotropium [place] (Spiriva) 18 mcg INH RQ24 [facility] Last Admin: 01/14/18 08:19 Dose: Not Given - Labs Labs: 01/13/18 06:29 01/13/18 06:29 PT 11.2 SECONDS (9.7-12.2) 01/12/18 18:29 INR 1.0 01/12/18 18:29 APTT 28 SECONDS (21-34) 01/12/18 18:29 Assessment and Plan - Assessment and Plan (Free Text) Assessment: Patient seen and evaluated personally by me. Plan of care d/w the program medical director and as documented
[2018-01-14] MEDS ORDERED: Caffeine Citrated **INJ** 20 MG/ML IV ONE (10:24)
[2018-01-14] MEDS: Enoxaparin 40 mg Syringe SC SCH (11:59)
[2018-01-14] MEDS: Potassium Chloride 20 mEq ER Tab PO SCH (12:02)
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
[2018-01-15] MEDS: Albuterol-Ipratrop 3 mg / 0.5 (3 ml) UD INH SCH ×7 (00:51→23:41)
[2018-01-15] MEDS: MethylPREDNISolone 40 mg Vial IVP SCH ×4 (05:48→21:17)
[2018-01-15] MEDS: Fluticasone-Salmeterol 250-50mcg Diskus IH SCH ×2 (07:56→19:21)
[2018-01-15] MEDS: Tiotropium 18 mcg Cap For Inhalation INH SCH (07:57)
[2018-01-15] MEDS: (Novolin R) Insulin Human Regular 100 units/ml vial SC SCH ×4 (08:12→23:11)
[2018-01-15] MEDS: Enoxaparin 40 mg Syringe SC SCH (09:39)
[2018-01-15] MEDS: Potassium Chloride 20 mEq ER Tab PO SCH (09:40)
[2018-01-15 11:56] LABS: HEMOGLOBIN 11.9 g/dL (11.0-16.0); LYMPH # 0.3 K/uL (1.0-4.3); LYMPH % 3.6 % (20.0-40.0); MEAN CELL VOLUME 86.6 fL (81.0-99.0); MEAN CORPUSCULAR HEMOGLOBIN 29.8 pg (27.0-31.0); MEAN CORPUSCULAR HGB CONC 34.4 g/dL (33.0-37.0); MEAN PLATELET VOLUME 8.7 fL (7.2-11.7); MONO # 0.3 K/uL (0.0-0.8); MONO % 4.5 % (0.0-10.0); NEUT # 6.4 K/uL (1.8-7.0); NEUT % 91.9 % (50.0-75.0); PLATELET COUNT 344 K/uL (130-400); RBC 3.99 Mil/uL (3.80-5.20); RED CELL DISTRIBUTION WIDTH 16.6 % (11.5-14.5); WHITE BLOOD COUNT 6.9 K/uL (4.8-10.8)
[2018-01-15 12:31] LABS: BLOOD UREA NITROGEN 18 mg/dL (7-17); CALCIUM 9.1 mg/dl (8.6-10.4); GFR AFRICAN-AMERICAN > 60; GFR NON-AFRICAN AMERICAN > 60
[2018-01-15 12:36] LABS: LYMPHOCYTE 3 % (20-40); MONOCYTE 3 % (0-10); NEUTROPHIL 94 % (50-75); PLATELET ESTIMATE NORMAL (NORMAL); TOTAL CELLS COUNTED 100
[2018-01-15 12:38] LABS: ANISOCYTOSIS SLIGHT
[2018-01-15] MEDS ORDERED: Potassium Chloride 20 mEq ER Tab PO ONE (16:00)
--- NOTE | 2018-01-16 00:16 | CP.PCM.PN ---
Subjective - Date & Time of Evaluation Date of Evaluation: 01/15/18 Time of Evaluation: 15:05 - Subjective Subjective: Patient seen and evaluated No cardiac events noted Continue current meds Objective - Vital Signs/Intake and Output Vital Signs (last 24 hours): Temp Pulse Resp BP Pulse Ox 97.6 F 71 20 168/63 H 96 01/15/18 15:00 01/15/18 22:28 01/15/18 15:00 01/15/18 21:21 01/15/18 15:00 Intake and Output: 01/15/18 01/16/18 18:59 06:59 Intake Total 720 Balance 720 - Medications Medications: Current Medications Albuterol/Ipratropium (Duoneb 3 Mg/0.5 Mg (3 Ml) Ud) 3 ml INH RQ4 [facility] Last Admin: 01/15/18 23:41 Dose: Not Given Azithromycin (Zithromax) 500 mg PO Q24H [facility] PRN Reason: Protocol Stop: 01/17/18 10:01 Last Admin: 01/15/18 09:40 Dose: 500 mg Dextrose (Dextrose 50% Inj) 0 ml IV STAT PRN; Protocol PRN Reason: Hypoglycemia Protocol Dextrose (Glutose 15) 0 gm PO ONCE PRN; Protocol PRN Reason: Hypoglycemia Protocol Enalapril Maleate (Vasotec) 20 mg PO DAILY [facility] Last Admin: 01/15/18 09:40 Dose: 20 mg Enoxaparin Sodium (Lovenox) 40 mg SC DAILY [facility] Last Admin: 01/15/18 09:39 Dose: 40 mg Glucagon (Glucagen Diagnostic Kit) 0 mg IM STAT PRN; Protocol PRN Reason: Hypoglycemia Protocol Dextrose (Dextrose 5% In Water 1000 Ml) 1,000 mls @ 0 mls/hr IV .Q0M PRN; Protocol; Per Protocol PRN Reason: Hypoglycemia Protocol Ceftriaxone Sodium 1 gm/ (Sodium Chloride) 100 mls @ 100 mls/hr IVPB DAILY [facility] PRN Reason: Protocol Last Admin: 01/15/18 10:09 Dose: 100 mls/hr Insulin Human Regular (Novolin R) 0 unit SC ACHS [facility] PRN Reason: Protocol Last Admin: 01/15/18 23:11 Dose: 2 units Metformin HCl (Glucophage) 850 mg PO BID [facility] Last Admin: 01/15/18 17:21 Dose: 850 mg Methylprednisolone (Solu-Medrol) 40 mg IVP Q8 [facility] Last Admin: 01/15/18 21:17 Dose: 40 mg Metoprolol Tartrate (Lopressor) 25 mg PO Q12 [facility] Last Admin: 01/15/18 21:21 Dose: 25 mg Potassium Chloride (K-Dur 20 Meq Er Tab) 20 meq PO DAILY [facility] Stop: 01/17/18 10:01 Last Admin: 01/15/18 09:40 Dose: 20 meq Rosuvastatin Calcium (Crestor) 10 mg PO HS [facility] Last Admin: 01/15/18 21:17 Dose: 10 mg Fluticasone/Salmeterol (Advair Diskus 250/50) 1 puff IH RQ12 [facility] Last Admin: 01/15/18 19:21 Dose: 1 puff Tiotropium [place] (Spiriva) 18 mcg INH RQ24 [facility] Last Admin: 01/15/18 07:57 Dose: Not Given - Labs Labs: 01/15/18 11:44 01/15/18 11:44 PT 11.2 SECONDS (9.7-12.2) 01/12/18 18:29 INR 1.0 01/12/18 18:29 APTT 28 SECONDS (21-34) 01/12/18 18:29
[2018-01-16] MEDS: Albuterol-Ipratrop 3 mg / 0.5 (3 ml) UD INH SCH ×6 (03:39→23:36)
[2018-01-16] MEDS: MethylPREDNISolone 40 mg Vial IVP SCH ×3 (05:59→21:22)
[2018-01-16] MEDS: Fluticasone-Salmeterol 250-50mcg Diskus IH SCH ×2 (07:36→19:55)
[2018-01-16] MEDS: (Novolin R) Insulin Human Regular 100 units/ml vial SC SCH ×4 (08:30→21:29)
[2018-01-16] MEDS: Enoxaparin 40 mg Syringe SC SCH (10:11)
[2018-01-16] MEDS: Potassium Chloride 20 mEq ER Tab PO SCH (10:12)
[2018-01-16] MEDS: Tiotropium 18 mcg Cap For Inhalation INH SCH (11:34)
[2018-01-16] MEDS ORDERED: Potassium Chloride 20 mEq ER Tab PO ONE (16:00)
--- NOTE | 2018-01-16 22:09 | CARD ---
APPROVED REPORT Date of service: 01/12/2018 EKG Measurement Heart [id number] <Conclusion> Normal sinus rhythm Minimal voltage criteria for LVH, may be normal variant Borderline ECG
--- NOTE | 2018-01-16 22:49 | CARD ---
APPROVED REPORT Date of service: 01/13/2018 EXAM: Two-dimensional and M-mode echocardiogram with Doppler and color Doppler. INDICATION Dyspnea Chest Pain COPD 2D DIMENSIONS IVSd0.6 (0.7-1.1cm)LVDd3.9 (3.9-5.9cm) LVOT Diameter2.1 (1.8-2.4cm)PWd0.7 (0.7-1.1cm) LVDs3.1 (2.5-4.0cm)FS (%) 22.0 % M-Mode DIMENSIONS Left Atrium (MM)3.12 (2.5-4.0cm)IVSd0.85 (0.7-1.1cm) Aortic Root1.95 (2.2-3.7cm)LVDd4.28 (4.0-5.6cm) Aortic Cusp Exc.1.31 (1.5-2.0cm)PWd1.06 (0.7-1.1cm) FS (%) 50 %LVDs2.13 (2.0-3.8cm) Aortic Valve AoV Peak Shuevmcx642.4cm/sAoV VTI64.8cmAO Peak GR.25mmHg LVOT Peak Zbzincvq151.9cm/sLVOT VTI40.95cmAO Mean GR.13mmHg IZABEL (VMAX)2.12fu8GAE (VTI)2.18cm2 Mitral Valve MV E Kmebrvco409.6cm/sMV A Yurfmnec599.5cm/sE/A ratio0.9 TDI E/Lateral E'0.0E/Medial E'0.0 Tricuspid Valve TR Peak Nugomtgz451gt/sTR Peak Gr.69htPgPFOS79dtHd <Conclusion> Suboptimal study Left ventricle: thickness: normal; size: normal; overall ejection fraction: 65%: diastolic filling pressures: normal Mitral valve: annulus: normal: leaflets: normal: excursion: normal; no significant trans-mitral gradient: no significant incompetence: left atrium: normal Aortic valve: leaflets: calcific thickening: excursion: indeterminate; 25mmHg peak (mean 13mmHg) trans-aortic gradient: No significant incompetence: aortic root: normal; calculated AV area 1.8cm2; if clinically discordant would repeat aortic dopplers Right sided Structures: Pulmonary valve: normal; no significant incompetence; Tricuspid valve: normal; no significant incompetence: Intra-cardiac hemodynamics: pulmonary systolic pressures: 45mmHg; central venous pressures: normal No pericardial effusion
--- NOTE | 2018-01-17 00:12 | CARD ---
APPROVED REPORT Date of service: 01/12/2018 EKG Measurement Heart [id number] <Conclusion> Normal sinus rhythm Right atrial enlargement Minimal voltage criteria for LVH, may be normal variant Borderline ECG
[2018-01-17] MEDS: Albuterol-Ipratrop 3 mg / 0.5 (3 ml) UD INH SCH ×2 (03:19→07:41)
[2018-01-17] MEDS: MethylPREDNISolone 40 mg Vial IVP SCH (05:26)
[2018-01-17] MEDS: Fluticasone-Salmeterol 250-50mcg Diskus IH SCH (07:41)
[2018-01-17] MEDS: Tiotropium 18 mcg Cap For Inhalation INH SCH (07:42)
--- NOTE | 2018-01-17 08:33 | PN ---
Copied To: Estephania Freeman MD Attending MD: Estephania Freeman MD DATE: 01/16/2018 The patient gets supportive care. Continue with treatment. IV antibiotics. Estephania Freeman MD
--- NOTE | 2018-01-17 08:38 | CP.PCM.PN ---
Subjective - Date & Time of Evaluation Date of Evaluation: 01/17/18 Time of Evaluation: 07:00 - Subjective Subjective: PGY3 Progress Note Dr. Freeman Patient seen and examined at bedside. Per nursing, no acute events occurred overnight. Patient will be NPO AM for stress test morning of 01/18/18. Patient denies any chest pain, shortness of breath, fevers, chills, nausea , vomiting, or any other complaints. --- Patient has decided to leave the hospital against medical advice. The patient is competent and understands the risks of leaving, including permanent disability and/or , and has had an opportunity to ask questions about his/ her condition. Patient accepts all risk and liability. Paper work filed. Attending notified by RN. The patient has been informed that he/she may return for care at any time, and patient will follow-up with PMD urgently. She states she will go straight to [facility]. Objective - Vital Signs/Intake and Output Vital Signs (last 24 hours): Temp Pulse Resp BP Pulse Ox 98.6 F 69 20 190/60 H 97 01/17/18 04:00 01/17/18 04:14 01/17/18 04:00 01/17/18 08:31 01/17/18 04:00 Intake and Output: 01/17/18 01/17/18 06:59 18:59 Intake Total 120 Output Total 750 Balance -630 - Medications Medications: Current Medications Albuterol/Ipratropium (Duoneb 3 Mg/0.5 Mg (3 Ml) Ud) 3 ml INH RQ4 [facility] Last Admin: 01/17/18 07:41 Dose: 3 ml Azithromycin (Zithromax) 500 mg PO Q24H [facility] PRN Reason: Protocol Stop: 01/17/18 10:01 Last Admin: 01/16/18 10:17 Dose: 500 mg Dextrose (Dextrose 50% Inj) 0 ml IV STAT PRN; Protocol PRN Reason: Hypoglycemia Protocol Dextrose (Glutose 15) 0 gm PO ONCE PRN; Protocol PRN Reason: Hypoglycemia Protocol Enalapril Maleate (Vasotec) 20 mg PO DAILY [facility] Last Admin: 01/17/18 08:31 Dose: 20 mg Enoxaparin Sodium (Lovenox) 40 mg SC DAILY [facility] Last Admin: 01/16/18 10:11 Dose: 40 mg Glucagon (Glucagen Diagnostic Kit) 0 mg IM STAT PRN; Protocol PRN Reason: Hypoglycemia Protocol Dextrose (Dextrose 5% In Water 1000 Ml) 1,000 mls @ 0 mls/hr IV .Q0M PRN; Protocol; Per Protocol PRN Reason: Hypoglycemia Protocol Ceftriaxone Sodium 1 gm/ (Sodium Chloride) 100 mls @ 100 mls/hr IVPB DAILY [facility] PRN Reason: Protocol Last Admin: 01/16/18 10:10 Dose: 100 mls/hr Insulin Human Regular (Novolin R) 0 unit SC ACHS [facility] PRN Reason: Protocol Last Admin: 01/16/18 21:29 Dose: 3 units Metformin HCl (Glucophage) 850 mg PO BID [facility] Last Admin: 01/16/18 17:46 Dose: Not Given Methylprednisolone (Solu-Medrol) 40 mg IVP Q8 [facility] Last Admin: 01/17/18 05:26 Dose: 40 mg Metoprolol Tartrate (Lopressor) 25 mg PO Q12 [facility] Last Admin: 01/16/18 21:22 Dose: 25 mg Potassium Chloride (K-Dur 20 Meq Er Tab) 20 meq PO DAILY [facility] Stop: 01/17/18 10:01 Last Admin: 01/16/18 10:12 Dose: 20 meq Rosuvastatin Calcium (Crestor) 10 mg PO HS [facility] Last Admin: 01/16/18 21:22 Dose: 10 mg Fluticasone/Salmeterol (Advair Diskus 250/50) 1 puff IH RQ12 [facility] Last Admin: 01/17/18 07:41 Dose: 1 puff Tiotropium [place] (Spiriva) 18 mcg INH RQ24 [facility] Last Admin: 01/17/18 07:42 Dose: 18 mcg - Labs Labs: 01/15/18 11:44 01/15/18 11:44 PT 11.2 SECONDS (9.7-12.2) 01/12/18 18:29 INR 1.0 01/12/18 18:29 APTT 28 SECONDS (21-34) 01/12/18 18:29 - Additional Findings Additional findings: - Head Exam Head Exam: ATRAUMATIC, NORMAL INSPECTION - Eye Exam Eye Exam: EOMI, Normal appearance, PERRL Pupil Exam: NORMAL ACCOMODATION, PERRL. absent: Irregular, Unequal - ENT Exam ENT Exam: Mucous Membranes Moist, Normal Oropharynx - Respiratory Exam Respiratory Exam: Clear to Ausculation Bilateral, NORMAL BREATHING PATTERN. absent: Prolonged Expiratory Phase, Respiratory Distress - Cardiovascular Exam Cardiovascular Exam: REGULAR RHYTHM, +S1, +S2 - GI/Abdominal Exam GI & Abdominal Exam: Soft, Normal Bowel Sounds - Extremities Exam Extremities Exam: Full ROM, Normal Inspection. absent: Pedal Edema - Back Exam Back Exam: NORMAL INSPECTION. absent: CVA tenderness (R), paraspinal tenderness - Neurological Exam Neurological Exam: Alert, Awake, Oriented x3 - Psychiatric Exam Psychiatric exam: Normal Affect, Normal Mood - Skin Skin Exam: Dry, Intact Assessment and Plan - Assessment and Plan (Free Text) Assessment: 67 YO F w/ PMH of CAD, PVD, HTN, HLD, Type 2 DM, carotid stenosis s/p endartectomy, COPD, bipolar admitted for COPD exacerbation, hypokalemia, r/o pneumonia and chest pain. Pt is a poor historian. COPD exacerbation -Chest X ray - negative for active disease -mycoplasma, step pneumo: Negative -secondary to noncompliance with medications -with diffuse wheezing b/l on inhalation and exhalation -Duonebs RQ4 denice -Spiriva 18mcg INH Daily -Advair 250/50 RQ12 -Solumedrol IVP 60mg Q6 hours - SAt 94% O2, 2L NC prn to keep O2 sat above 92% -Ceftriaxone 1 gram IVPB daily (started 01/12) -Azithromycin 500mg PO daily x 5 days (started 01/12) Chest Pain/CAD- s/p CABG 01/17: Patient will be NPO AM for stress test morning of 01/18/18. -likely scrondary to COPD exacerbation but will r/o [place] -Troponin x 3 : negative -EKG : Non specific EKG changes noted. No acute ischemic event noted -Cardiology consulted, Dr. Lam, help appreciated - patient was recently hospitalized at [facility]. will need to check medical record to see if recent echo was ordered -Pt started was on coumadin therapy but has not been taking? -PT: 11.2, INR:1.O Hypokalemia - Replaced iv -Mg level 1.7 -Will monitor with serial CMP's Diarrhea -C.diff negative -stool leukocytes negative HTN -controlled, low sodium diet -Enalapril 10mg PO daily -HCTHZ 25mg PO daily -Metoprolol 25mg BID DM- Type II uncontrolled -HbA1c 9 (11/05/17) -Sliding scale Insulin; medium dose -Accuchecks ACHS -hypoglycemia protocol -will hold home metformin while in the hospital Sunburn, dorsum of feet Wound care consulted, help appreciated Hx of Bipolar disorder, schizophrenia, anxiety -AOX3 on exam today. -Psych consulted, [place], help appreciated Prophylaxis -Lovenox 40mg sc daily, SCD not indicated due to leg edema - GI not indicated All orders and management per Dr. Freeman. ---- Patient has decided to leave the hospital against medical advice. The patient is competent and understands the risks of leaving, including permanent disability and/or , and has had an opportunity to ask questions about his/ her condition. Patient accepts all risk and liability. Paper work filed. Attending notified by RN. The patient has been informed that he/she may return for care at any time, and patient will follow-up with PMD urgently. She states she will go straight to [facility].
[2018-01-17] MEDS: (Novolin R) Insulin Human Regular 100 units/ml vial SC SCH (08:50)
[2018-01-17 09:04] VITALS: TEMP 97.9; O2SAT 99
[2018-01-17 09:27] VITALS: PULSE 77
[2018-01-17] MEDS: Potassium Chloride 20 mEq ER Tab PO SCH (09:43)
[2018-01-17 09:44] VITALS: BP 138/54
[2018-01-17] MEDS: Enoxaparin 40 mg Syringe SC SCH (09:44)
--- NOTE | 2018-01-17 09:51 | CP.PCM.PN ---
Subjective - Date & Time of Evaluation Date of Evaluation: 01/17/18 Time of Evaluation: 09:51 - Subjective Subjective: Cardiology Progress Note - Dr Lam Patient seen and examined at bedside. Per nursing no acute events overnight. Patient for stress test tomorrow since she ate breakfast this morning. States that she is leaving today because she needs to get her [facility]. Denies chest pain or dyspnea. Objective - Vital Signs/Intake and Output Vital Signs (last 24 hours): Temp Pulse Resp BP Pulse Ox 97.9 F 77 20 138/54 L 99 01/17/18 07:40 01/17/18 09:26 01/17/18 07:40 01/17/18 09:43 01/17/18 07:40 Intake and Output: 01/17/18 01/17/18 06:59 18:59 Intake Total 120 Output Total 750 Balance -630 - Medications Medications: Current Medications Albuterol/Ipratropium (Duoneb 3 Mg/0.5 Mg (3 Ml) Ud) 3 ml INH RQ4 [facility] Last Admin: 01/17/18 07:41 Dose: 3 ml Azithromycin (Zithromax) 500 mg PO Q24H [facility] PRN Reason: Protocol Stop: 01/17/18 10:01 Last Admin: 01/17/18 09:43 Dose: 500 mg Dextrose (Dextrose 50% Inj) 0 ml IV STAT PRN; Protocol PRN Reason: Hypoglycemia Protocol Dextrose (Glutose 15) 0 gm PO ONCE PRN; Protocol PRN Reason: Hypoglycemia Protocol Enalapril Maleate (Vasotec) 20 mg PO DAILY [facility] Last Admin: 01/17/18 09:45 Dose: Not Given Enoxaparin Sodium (Lovenox) 40 mg SC DAILY [facility] Last Admin: 01/17/18 09:44 Dose: 40 mg Glucagon (Glucagen Diagnostic Kit) 0 mg IM STAT PRN; Protocol PRN Reason: Hypoglycemia Protocol Dextrose (Dextrose 5% In Water 1000 Ml) 1,000 mls @ 0 mls/hr IV .Q0M PRN; Protocol; Per Protocol PRN Reason: Hypoglycemia Protocol Ceftriaxone Sodium 1 gm/ (Sodium Chloride) 100 mls @ 100 mls/hr IVPB DAILY [facility] PRN Reason: Protocol Last Admin: 01/16/18 10:10 Dose: 100 mls/hr Insulin Human Regular (Novolin R) 0 unit SC ACHS [facility] PRN Reason: Protocol Last Admin: 01/17/18 08:50 Dose: 6 units Metformin HCl (Glucophage) 850 mg PO BID [facility] Last Admin: 01/17/18 09:43 Dose: 850 mg Methylprednisolone (Solu-Medrol) 40 mg IVP Q8 [facility] Last Admin: 01/17/18 05:26 Dose: 40 mg Metoprolol Tartrate (Lopressor) 25 mg PO Q12 [facility] Last Admin: 01/17/18 09:43 Dose: 25 mg Potassium Chloride (K-Dur 20 Meq Er Tab) 20 meq PO DAILY [facility] Stop: 01/17/18 10:01 Last Admin: 01/17/18 09:43 Dose: 20 meq Rosuvastatin Calcium (Crestor) 10 mg PO HS [facility] Last Admin: 01/16/18 21:22 Dose: 10 mg Fluticasone/Salmeterol (Advair Diskus 250/50) 1 puff IH RQ12 [facility] Last Admin: 01/17/18 07:41 Dose: 1 puff Tiotropium [place] (Spiriva) 18 mcg INH RQ24 [facility] Last Admin: 01/17/18 07:42 Dose: 18 mcg - Labs Labs: 01/15/18 11:44 01/15/18 11:44 PT 11.2 SECONDS (9.7-12.2) 01/12/18 18:29 INR 1.0 01/12/18 18:29 APTT 28 SECONDS (21-34) 01/12/18 18:29 - Additional Findings Additional findings: - Additional Findings Additional findings: - Head Exam Head Exam: ATRAUMATIC, NORMAL INSPECTION - Eye Exam Eye Exam: EOMI, Normal appearance, PERRL Pupil Exam: NORMAL ACCOMODATION, PERRL. absent: Irregular, Unequal - ENT Exam ENT Exam: Mucous Membranes Moist, Normal Oropharynx - Respiratory Exam Respiratory Exam: Clear to Ausculation Bilateral, NORMAL BREATHING PATTERN. absent: Prolonged Expiratory Phase, Respiratory Distress - Cardiovascular Exam Cardiovascular Exam: REGULAR RHYTHM, +S1, +S2 - GI/Abdominal Exam GI & Abdominal Exam: Soft, Normal Bowel Sounds - Extremities Exam Extremities Exam: Full ROM, Normal Inspection. absent: Pedal Edema - Back Exam Back Exam: NORMAL INSPECTION. absent: CVA tenderness (R), paraspinal tenderness - Neurological Exam Neurological Exam: Alert, Awake, Oriented x3 - Psychiatric Exam Psychiatric exam: Normal Affect, Normal Mood - Skin Skin Exam: Dry, Intact Assessment and Plan - Assessment and Plan (Free Text) Assessment: Chest Pain/CAD- s/p CABG -likely secondary to COPD exacerbation but will r/o [place] -Troponin x 3 : negative -EKG : Non specific EKG changes noted. No acute ischemic event noted -ECHO: Normal EF -Patient did not complete stress test on 01/14, uncooperative with study -Patient for repeat stress test tomorrow 01/18 -Continue medical management HTN -Continue low sodium diet -Blood pressure normatensive this morning -Enalapril 20mg PO daily -Metoprolol 25mg BID Plan discussed with Dr Genaro Olsen DO PGY-2
[2018-01-17 11:37] LABS: HEMOGLOBIN 12.8 g/dL (11.0-16.0); LYMPH # 0.2 K/uL (1.0-4.3); MEAN CELL VOLUME 86.7 fL (81.0-99.0); MEAN CORPUSCULAR HEMOGLOBIN 29.7 pg (27.0-31.0); MEAN CORPUSCULAR HGB CONC 34.3 g/dL (33.0-37.0); MEAN PLATELET VOLUME 9.2 fL (7.2-11.7); MONO # 0.2 K/uL (0.0-0.8); MONO % 2.7 % (0.0-10.0); NEUT # 7.5 K/uL (1.8-7.0); NEUT % 94.3 % (50.0-75.0); NRBC % 0.1 % (0.0-2.0); PLATELET COUNT 315 K/uL (130-400); RBC 4.31 Mil/uL (3.80-5.20); RED CELL DISTRIBUTION WIDTH 15.8 % (11.5-14.5); WHITE BLOOD COUNT 7.9 K/uL (4.8-10.8)
[2018-01-17 12:25] LABS: LYMPHOCYTE 4 % (20-40); MONOCYTE 1 % (0-10); NEUTROPHIL 95 % (50-75); PLATELET ESTIMATE NORMAL (NORMAL); TOTAL CELLS COUNTED 100
[2018-01-17 12:26] LABS: ANISOCYTOSIS SLIGHT; POIKILOCYTOSIS SLIGHT
[2018-01-17 12:27] LABS: ALB/GLOB RATIO 1.4 (1.0-2.1); ALBUMIN 3.3 g/dL (3.5-5.0); ALT/SGPT 23 U/L (9-52); AST/SGOT 15 U/L (14-36); BLOOD UREA NITROGEN 17 mg/dL (7-17); CALCIUM 9.2 mg/dl (8.6-10.4); GFR AFRICAN-AMERICAN > 60; GFR NON-AFRICAN AMERICAN > 60
--- NOTE | 2018-01-20 13:22 | DS ---
Copied To: Estephania Freeman MD Attending MD: Estephania Freeman MD The patient came to the hospital with a chief complaint of nausea, vomiting, fatigue, tiredness, shortness of breath. The patient found to have COPD . The patient did receive bronchodilators, discharged, to be followed outpatient COPD. Estephania Freeman MD
== END 2018-01-17 12:09 | disposition left against medical advice (07) | DRG 192 ==
LOC: C.ER 10:42 → C.9E 15:24 → C.6T 17:31
PROVIDERS: ADMIT Internal Medicine Pulmonary Disease; ATTEND Internal Medicine Pulmonary Disease
DX: J44.1 Chronic obstructive pulmonary disease with (acute) exacerbation (principal); G89.29 Other chronic pain; F41.1 Generalized anxiety disorder; I11.0 Hypertensive heart disease with heart failure; I25.10 Atherosclerotic heart disease of native coronary artery without angina pectoris; I50.9 Heart failure, unspecified; F31.9 Bipolar disorder, unspecified; F17.210 Nicotine dependence, cigarettes, uncomplicated; F03.90 Unspecified dementia, unspecified severity, without behavioral disturbance, psychotic disturbance, mood disturbance, and anxiety; E87.6 Hypokalemia; E78.5 Hyperlipidemia, unspecified; E11.9 Type 2 diabetes mellitus without complications; Z59.0 Homelessness; Z79.84 Long term (current) use of oral hypoglycemic drugs; Z91.14 Patient's other noncompliance with medication regimen

== ENCOUNTER 2018-01-17 22:49 | Emergency (ER) | payer MEDICARE ==
[2018-01-17 22:49] VITALS: BMI 23.2
[2018-01-17 23:02] VITALS: BP 170/79; PULSE 60; RESP 20; TEMP 97.7; O2SAT 98
[2018-01-17] MEDS ORDERED: Lidocaine 5% Patch TD STA (23:14)
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
[2018-01-17] MEDS ORDERED: Lidocaine 5% Patch TD ONE (23:23)
== END 2018-01-18 00:33 | disposition home or self-care (01) ==
LOC: C.ER 22:49
DX: S30.0XXA Contusion of lower back and pelvis, initial encounter (principal); W22.8XXA Striking against or struck by other objects, initial encounter; Y92.811 Bus as the place of occurrence of the external cause; I50.9 Heart failure, unspecified; I10 Essential (primary) hypertension; E78.00 Pure hypercholesterolemia, unspecified; Z72.0 Tobacco use